=== PATIENT | male | born 1960 | race Caucasian/White ===

== ENCOUNTER 2023-12-24 09:43 | Outpatient (CLI) | payer BC ==
[2023-12-24] MEDS ORDERED: Iopamidol 300 61% 100 ML VIAL FS ONE (13:52)
== END 2023-12-24 09:44 | disposition home or self-care (01) ==
LOC: CSHCT 09:43
PROVIDERS: ATTEND Physician Assistant Medical
DX: C18.9 Malignant neoplasm of colon, unspecified (principal)
CPT/HCPCS: 74177; 82565; Q9967

== ENCOUNTER 2024-07-17 07:45 | Outpatient (CLI) | payer BC ==
[2024-07-17] MEDS ORDERED: Iopamidol 300 61% 100 ML VIAL FS ONE (09:35)
== END 2024-07-17 07:46 | disposition home or self-care (01) ==
LOC: CSHCT 07:45
PROVIDERS: ATTEND Internal Medicine
DX: C18.4 Malignant neoplasm of transverse colon (principal); R91.8 Other nonspecific abnormal finding of lung field
CPT/HCPCS: 71260; 74177; 82565; Q9967

== ENCOUNTER 2024-10-09 07:15 | Outpatient (CLI) | payer BC ==
[2024-10-09] MEDS ORDERED: Iopamidol 300 61% 100 ML VIAL FS ONE (14:47)
== END 2024-10-09 07:16 | disposition home or self-care (01) ==
LOC: CSHCT 07:15
PROVIDERS: ATTEND Internal Medicine
DX: C18.9 Malignant neoplasm of colon, unspecified (principal); R91.8 Other nonspecific abnormal finding of lung field
CPT/HCPCS: 71260; 74177; 82565